=== PATIENT | female | born 1965 | race Caucasian/White ===

== ENCOUNTER 2024-04-14 14:34 | Emergency (ER) | payer MEDICAID, SELFPAY ==
[2024-04-14 14:36] VITALS: BMI 21.4
[2024-04-14 15:11] VITALS: BP 132/82; PULSE 88; RESP 18; TEMP 36.8; O2SAT 98
--- NOTE | 2024-04-14 15:31 | EDNOTE_ITS ---
Lower Extremity Injury RME/HPI General Chief Complaint: Extremity Injury, Lower Stated Complaint: L FOOT PAIN S/P SX ON 03/15 Time Seen by Provider: 04/14/24 14:43 Arrival date/time: 04/14/24 14:34 58-year-old female reports with multiple erwin to be removed from left lower extremity. Patient states they have been in for approximately 1 month. She admits to noncompliance with follow-ups regarding her injury to wound. Patient states she found time today to have them removed. She is noticing swelling but no redness no purulent discharge numbness tingling loss of range of motion of weight or weakness in the lower extremity. Patient reports only having pain with touching the actual suture site Limitations: no limitations Related Data Home Medications ?Medication ?Instructions ?Recorded ?Confirmed No Known Home Medications 05/31/20 05/31/20 Allergies Allergy/AdvReac Type Severity Reaction Status Date / Time ketorolac Allergy Severe Vomiting Verified 05/31/20 12:28 latex Allergy Severe Blister Verified 05/31/20 12:29 haloperidol AdvReac Severe Nausea/Vomi Verified 05/31/20 12:28 tiing Review of Systems Constitutional Constitutional: Denies chills and Denies fever(s) Musculoskeletal Musculoskeletal: Denies arthralgias, Denies deformity, Reports joint swelling, Denies numbness and Denies tingling Integumentary/Breasts Skin/Breast: Denies unusual bruising and Reports wounds Neurologic Neurologic: Denies numbness and Denies tingling Hematologic/Lymphatic Hematologic/Lymphatic: Denies easy bleeding and Denies easy bruising Past Medical History Social History SMOKING STATUS: Former smoker ED Exam General Limitations: Present no limitations General appearance: Present alert and in no apparent distress Expanded Lower Extremity Exam Leg image: 2 1. 5 erwin, overgrown skin 2. 2 erwin, overgrown skin Knee exam: Present full ROM and other (Approximately 3 cm laceration just at the patella with 5 sutures intact but overly grown skin well-approximated edges no evidence of infection); Absent tenderness or swelling Lower leg exam: Present other (Left lower leg with 2 sutures and proximal tibia overgrown skin but well-approximated edges no evidence of infection) Ankle exam: Present other (Left ankle with 5 erwin overgrown skin but well- approximated sutures medial malleolus nontenderness, 2 intact but overly grown skin over 2 erwin no evidence infection, left lateral ankle with 19 erwin overgrown skin but no evidence of infection) Ankle image: 2 1. 5 erwin, overgrown skin 2. 2 erwin overgrown skin 3. 19 erwin, overgrown skin Foot/toe exam: Present other Neurovascular/Tendon exam: Present normal capillary refill; Absent pulse deficit or motor deficit Gait: antalgic Neurological Exam Neurological exam: Present alert, oriented X3 and CN II-XII intact Psychiatric Psychiatric exam: Present normal affect and normal mood Skin Skin exam: Present warm, dry, intact and normal color Course Course Course Narrative: 58-year-old female with erwin placed in multiple areas of the left lower extremity I removed 5 intact sutures from the patella proximal tibia medial malleolus and anterior ankle. I began to remove sutures from the lateral tibia and malleolus however patient stopped me at approximately 7 sutures there were 19 total she does not wish to have the remaining removed due to pain she says she will return in another day I advised patient of possible infections that could ensue patient verbalized understanding and still declined. Patient is stable of sound mind and body and will be discharged Quality Measures none Orders Category Date Time Status Lidocaine/Prilocaine Cr 5Gm [Emla Cr] Med 04/14/24 15:31 Discontinued See Dose Instructions TOP X1 ONE Vital Signs Vital signs: Vital Signs Temperature 98.3 F 04/14/24 15:11 Pulse Rate 88 04/14/24 15:11 Respiratory Rate 18 04/14/24 15:11 Blood Pressure 132/82 H 04/14/24 15:11 Pulse Oximetry (%) 98 04/14/24 15:11 Oxygen Delivery Method Room Air 04/14/24 15:11 Extremity Injury, Lower Patient data External records reviewed:: None Clinical information provided by:: patient Social determinants that could affect healthcare access:: none Patient has the following chronic illnesses:: none How is presenting disease/condition affected by chronic disease/condition?: no chronic disease Evaluation data The following diagnostics were reviewed and interpreted by me:: other (specify) Lab and/or radiology exams considered but not ordered:: none Interpretation Summary: none Medications / Prescriptions Medications or Prescriptions considered but not ordered:: none Medication administrations:: Medication Administration History Discontinued Medications Lidocaine/Prilocaine (Lidocaine/Prilocaine Cr 5gm 5 Gm Tube) 0 gm TOP X1 ONE Stop: 04/14/24 15:32 not given pt declined Consultations Consultation(s) initiated? (list below): No Diagnosis Most likely diagnosis given after review of the tests above:: suture removal Admission Indicated Admission indicated?: not indicated Admission Request Was there a request for admission?: No Disposition Plan Disposition Plan: Discharge Discharge Attestation Discharge Attestation: The patient and all family members were given an opportunity to ask questions and understood the discharge instructions. Discharge instructions specifically effects, indications for sooner follow up or return to the emergency department, and the expected course of current diagnosis. Patient condition: Stable Discharge Plan Plan Patient Disposition: Left Against Medical Advice Prescriptions/Referrals Prescriptions/Med Rec: No Action No Known Home Medications Problem List Clinical Impression: Encounter for removal of sutures Patient/Caregiver Discharge Instructions Print Language: Angolan Stand Alone Forms: Terrie Award Info., Patient Portal Info Letter MD Attestation Attestation The patient was seen by the midlevel practitioner. I, the co-signing physician, was present during the entire ER visit. While I did not physically examine the patient, I was available for consultation as needed.
== END 2024-04-14 16:22 | disposition left against medical advice (07) ==
PROVIDERS: Emergency Provider Emergency Medicine
DX: Z48.02 Encounter for removal of sutures (principal); Z53.29 Procedure and treatment not carried out because of patient's decision for other reasons
CPT/HCPCS: 99281